=== PATIENT | male | born 1990 | race Caucasian/White ===

== ENCOUNTER 2022-07-19 13:22 | Emergency (ER) | payer SELFPAY ==
[~2022-07-19] VITALS: Ht 170.2 cm; Wt 79.4 kg
--- NOTE | 2022-07-19 13:31 | NUR ---
TARYN Avendano FROM [facility]HAB [facility] AFTER FALILNG PT IS UNSURE IF HE HAD A SEIZURE OR PASSED OUT AND FELL ON HIS HEAD. STATED THAT HE STARTED TO HAVE SEIZURE WITHDRAWAL SYMPTOMS FROM DETOXING FROM ALCOHOL PRIOR TO THAT HAS NO HX. PT DENIES ANY PAIN AT THIS TIME, ARRIVED WITH CERVICAL COLLAR PRECAUTION. SEIZURE PRECAUTIONS IN PLACE. VITALS ARE WITHIN NORMAL LIMITS. PT IS A&OX4. AWAITING MD ORDERS.
[2022-07-19] MEDS ORDERED: GABA300C PO (14:45)
[2022-07-19] MEDS ORDERED: SEROQUEL (14:45)
[2022-07-19] MEDS ORDERED: WELLBUTRIN (14:45)
--- NOTE | 2022-07-19 14:47 | NUR ---
[facility] CALLED FOR DR DENNIS AT [phone],SPOKE WITH ALON
[2022-07-19] MEDS ORDERED: LEVETIRACETAM (500MG) 500 MG in IV NS 0.9% 100 ML IV ONE (15:00)
--- NOTE | 2022-07-19 15:10 | NUR ---
ADDENDUM: Intravenous End Time Documentation: Keppra 500 mg IVPB: start time: 1510 pm ; end time: 1540 pm : IV site: PIV # 20 Port # 1
[2022-07-19 15:18] LABS: BASOPHILS % (AUTO) 0.5 % (0.0-2.0); EOSINOPHILS % (AUTO) 0.3 % (0.0-6.0); HEMATOCRIT 46 % (39-51); HEMOGLOBIN 15.3 g/dL (13.5-17.5); LYMPHOCYTES # (AUTO) 0.9 K/uL (0.8-4.8); LYMPHOCYTES % (AUTO) 12.1 % (20.0-44.0); MEAN CORPUSCULAR HGB CONC 33 g/dl (31.0-36.0); MEAN CORPUSCULAR VOLUME 90 fL (80-96); MONOCYTES # (AUTO) 0.5 K/uL (0.1-1.30); MONOCYTES % (AUTO) 6.6 % (2.0-12.0); NEUTROPHILS # (AUTO) 5.7 K/uL (1.8-8.9); NEUTROPHILS % (AUTO) 80.5 % (43.0-81.0); PLATELET COUNT (AUTO) 264 K/uL (150-450); WHITE BLOOD COUNT (AUTO) 7.1 K/uL (4.3-11.0)
[2022-07-19 15:26] LABS: CALCIUM, SERUM 9.1 mg/dL (8.5-10.1); CARBON DIOXIDE 32 mmol/L (21-32); CHLORIDE 101 mmol/L (98-107); CREATININE 1.4 mg/dL (0.6-1.3); GLUCOSE 95 mg/dL (74-106); POTASSIUM 4.2 mmol/L (3.5-5.1); SODIUM SERUM 139 mmol/L (136-145); UREA NITROGEN, BLOOD 14 mg/dL (7-18)
[2022-07-19 15:32] LABS: ALANINE AMINOTRANSFERASE 19 U/L (12-78); ALBUMIN 4.3 g/dL (3.4-5.0); ALCOHOL, BLOOD < 3 mg/dL (0-0); ALKALINE PHOSPHATASE 64 U/L (46-116); ASPARTATE AMINOTRANSFERASE 21 U/L (15-37); BILIRUBIN,DIRECT 0.1 mg/dL (0.0-0.2); BILIRUBIN,TOTAL 0.6 mg/dL (0.2-1.0); TOTAL PROTEIN, SERUM 7.9 g/dL (6.4-8.2)
[2022-07-19 15:55] VITALS: BP 124/76
--- NOTE | 2022-07-19 15:55 | NUR ---
IV removed. Catheter intact and site benign. Pressure and 4x4 applied to site. No bleeding noted.Patient discharged to home in stable condition. Written and verbal after care instructions given. Patient verbalizes understanding of instruction.
== END 2022-07-19 15:55 | disposition home or self-care (01) ==
LOC: ER 13:30
DX: G40.909 Epilepsy, unspecified, not intractable, without status epilepticus (principal); F32.A Depression, unspecified; F41.9 Anxiety disorder, unspecified; Z79.899 Other long term (current) drug therapy
CPT/HCPCS: 99284; 96365; 70450; 85025; 80048; 80076; 36415; 85730; 80320; J7030; J1953; G0480